=== PATIENT | female | born 1990 | race Caucasian/White ===

== ENCOUNTER → 2016-11-09 | Outpatient (CLI) | payer OTHER ==
[~2016-11-09] VITALS: Ht 170.2 cm; Wt 49.0 kg
[~2016-11-09] MED LIST: NORMAL SALINE IV ONE; SINCALIDE IV ONE
--- NOTE | 2016-11-09 14:11 | RAD ---
Radionuclide hepatobiliary scan, 11/09/2016: History: Chronic abdominal pain Following IV injection of 5.5 mCi of technetium 99m Choletec there was prompt uptake of the radionuclide from the blood stream by the liver. Activity is present in the bile ducts, gallbladder and small bowel at 15 minutes. Additional imaging of the gallbladder was then performed following IV injection of 0.98 mcg of cholecystokinin. The gallbladder ejection fraction was calculated at 24%. 30-50% is considered to be the borderline low range. IMPRESSION: 1. No evidence of cystic duct or common bile duct obstruction. 2. Decreased gallbladder ejection fraction of 24%.
== END | disposition home or self-care (01) ==
LOC: NM 09:33
PROVIDERS: ATTEND Nurse Practitioner
DX: R10.9 Unspecified abdominal pain (principal); G89.29 Other chronic pain
CPT/HCPCS: 78226; 96374; 96375; A9537; J2805

== ENCOUNTER 2017-01-09 08:56 | Day surgery (SDC) | payer OTHER ==
[~2017-01-09] VITALS: Ht 172.7 cm; Wt 47.2 kg
[~2017-01-09 08:56] MED LIST changes: +BUPIVAC MPF-EPI 0.5%-1:200000 10 ML VIAL. ONE; +FOLI1TAB16 PO; +GLUCAGON,HUMAN RECOMBINANT 1 MG/ML VIAL. ONE; +HYDROmorphone 2 MG/ML VIAL IV PRN; +IOHEXOL 300 MG/ML 50 ML VIAL. ONE; +IV RINGERS,LACTATED 1000ML 1,000 ML IV SCH; +LIDOCAINE 1% PF 2 ML VIAL. ID PRN; +MEDR150D3 IM; +METH2.5T PO; +MORPHINE SULFATE 2 MG/ML DISP.SYRIN. IV PRN; +NAPR1TAB21 PO; -NORMAL SALINE IV ONE; +ONDANSETRON PF 4 MG/2 ML VIAL. IV PRN; +PROCHLORPERAZINE 10 MG/2 ML VIAL. IV PRN; -SINCALIDE IV ONE; +SURGICEL HEMOSTAT 4X8 EACH. ONE; +fentaNYL PF VIAL 100 MCG/2 ML VIAL IV PRN
[2017-01-09] MEDS ORDERED: MIDAZOLAM HCL/PF 2 MG/2 ML VIAL. ONE (09:56)
[2017-01-09] MEDS ORDERED: fentaNYL PF VIAL 100 MCG/2 ML VIAL ONE ×4 (09:56→12:31)
[2017-01-09 10:20] LABS: NEG OBC UR NEG; POS OBC UR POS
[2017-01-09 10:22] LABS: BASO % 1 % (0-3); EOS % 1 % (0-3); HEMATOCRIT 39.9 % (36.0-47.0); HEMOGLOBIN 13.6 g/dL (12.0-15.5); LYMPH # 1.7 x10^3/uL (1.0-4.8); LYMPH % 27 % (24-48); MEAN CORPUSCULAR HEMOGLOBIN 32 pg (25-35); MEAN CORPUSCULAR HGB CONC 34 g/dL (31-37); MEAN CORPUSCULAR VOLUME 94 fL (79-100); MONO % 10 % (0-9); NEUT % 62 % (31-73); PLATELET COUNT 224 x10^3/uL (140-400); RED BLOOD COUNT 4.26 x10^6/uL (3.50-5.40); RED CELL DISTRIBUTION WIDTH 13.2 % (11.5-14.5); WHITE BLOOD COUNT 6.2 x10^3/uL (4.0-11.0)
[2017-01-09 10:36] LABS: CALCIUM 8.4 mg/dL (8.5-10.1); CREATININE 0.7 mg/dL (0.6-1.0); GFR 100.4; POTASSIUM 3.7 mmol/L (3.5-5.1)
[2017-01-09 10:42] LABS: ALBUMIN 3.7 g/dL (3.4-5.0); TOTAL BILIRUBIN 0.5 mg/dL (0.2-1.0)
[2017-01-09] MEDS ORDERED: GLYCOPYRROLATE 1 MG/5 ML VIAL. ONE (11:04)
[2017-01-09] MEDS ORDERED: NEOSTIGMINE METHYLSULFATE 5 MG/5 ML SYRINGE. ONE (11:04)
[2017-01-09] MEDS ORDERED: ONDANSETRON PF 4 MG/2 ML VIAL. ONE (11:21)
[2017-01-09] MEDS ORDERED: LIDOCAINE 2% PF Vial for OR 5 ML VIAL. ONE (11:21)
[2017-01-09] MEDS ORDERED: DEXAMETHASONE SOD PHOS 20 MG/5 ML VIAL. ONE (11:21)
[2017-01-09] MEDS ORDERED: PROPOFOL 20 ML IV ONE (11:21)
[2017-01-09] MEDS ORDERED: KETOROLAC 30 MG/ML INJ FOR OR. INJ ONE (11:21)
--- NOTE | 2017-01-09 11:38 | RAD ---
Indication protocol study. Postcholecystectomy. Assess for variant anatomy or complication. Assess for potential choledocholithiasis. For members of the Department of surgery fluoroscopy was provided. 3 spot fluoroscopic images were obtained. Fluoroscopy time associated with the imaging was 0.9 minutes. Those intrahepatic radicles which are seen appear normal. The common hepatic duct appears unremarkable. There is slight irregularity in the distal common bile duct. This may reflect a component of spasm. Some debris in the distal common bile duct is not entirely excluded. Contrast flows into the duodenum. IMPRESSION: Slight irregularity involving the distal common bile duct may reflect some spasm or debris in the duct.
--- NOTE | 2017-01-09 11:56 | OP ---
DATE OF SURGERY: 01/09/2017 PREOPERATIVE DIAGNOSIS: Biliary dyskinesia. POSTOPERATIVE DIAGNOSIS: Biliary dyskinesia. PROCEDURE: Laparoscopic cholecystectomy with cholangiograms. SURGEON: Ehsan Hood MD ANESTHESIA: General endotracheal. ESTIMATED BLOOD LOSS: 10 mL. INTRAVENOUS FLUID: 800. INDICATIONS: The patient is a 26-year-old with postprandial epigastric pain and nausea. She is brought for cholecystectomy. OPERATIVE FINDINGS: The liver was smooth and sharp. The gallbladder was supple. Cholangiograms were normal. DESCRIPTION OF PROCEDURE: The patient brought to the operating suite, given a general endotracheal anesthetic and the abdomen prepped and draped in usual sterile fashion. An infraumbilical incision was infiltrated with local anesthetic, sharply incised and a 5 mm Visiport placed, taking care to avoid injury to abdominal contents. Pneumoperitoneum established with the maximum pressure of 12 cm. Camera inserted and inspection carried out with results as noted above. With the table in reverse Trendelenburg rolled to left, the epigastric and midclavicular ports were placed. The lateral port location was used for an "alligator" grasper. Gallbladder was retracted superolaterally and the cystic duct and cystic artery were isolated. The duct was clipped on the gallbladder side. Cholangiograms were made. These were normal. In light of this, the catheter was removed. The cystic duct was clipped x 3 and divided, taking care to avoid injury or compromise of the common duct. The cystic artery was clipped and divided and gallbladder freed from the bed with cautery dissection. A small posterior vessel part way up the fossa was controlled with a single clip. Good hemostasis was present. Gallbladder placed in an EndoCatch bag and table returned to level. No evidence of bleeding or bile leak from the fossa was seen. Gallbladder delivered through the epigastric incision. Epigastric incision closed with interrupted 0 Vicryl suture. Intra-abdominal pressure decreased to 6 cm of water. No bleeding from the epigastric closure or from the midclavicular port site after its removal or from the alligator clamp site. Abdomen decompressed, camera slowly removed, no bleeding seen. Skin incisions closed with subcuticular 4-0 Monocryl. Steri-Strips and sterile dressings applied. The patient awakened from her anesthetic and taken to the recovery room in satisfactory condition. EHSAN HOOD MD DR: Ira JOB#: [id number] / [id number]
[2017-01-09] MEDS: fentaNYL PF VIAL 100 MCG/2 ML VIAL IV PRN ×4 (12:00→13:36)
--- NOTE | 2017-01-09 12:02 | PDOC ---
BRIEF OPERATIVE NOTE Date: Jan 09, 2017 Pre-Op Diagnosis biliary dyskinesia Post-Op Diagnosis same Procedure Performed l/s marky with dania Surgeon Charlie Publicity Manager Jazlyn CABEZAS Anesthesia Type: General Blood Loss 10cc IV Fluid 800cc Specimens Obtained GB Findings supple GB,grams suggested possible spasm or debris Complications none OPerative Note Wk # [id number] EHSAN HOOD MD Jan 09, 2017 12:02
--- NOTE | 2017-01-09 12:03 | DISCH ---
DISCHARGE INSTRUCTIONS Condition on Discharge Condition on Discharge: Stable Activity After Discharge Activity Instructions for Disc: Activity as tolerated, Avoid exertion Driving Instructions after Dis: Do not drive (3-4 days) Diet after Discharge Diet after Discharge: Regular Wound Incision Care Wound/Incision Care: Ice to area for comfort Other wound/incision instructi: shantanu shower Monday EHSAN HOOD MD Jan 09, 2017 12:03
[2017-01-09] MEDS ORDERED: OXYC-323 PO ×2 (12:11→12:21)
[2017-01-09] MEDS ORDERED: oxyCODONE/APAP 5/325 1 TAB TABLET PO ONE ×2 (12:45→13:15)
[2017-01-09 13:28] VITALS: BP 106/68
--- NOTE | 2017-01-10 14:12 | PATHOLOGY ---
PATHOLOGY REPORT * * * * * * * * FINAL DIAGNOSIS: Gallbladder, laparoscopic cholecystectomy: - Chronic cholecystitis, mild. COMMENT: There are no calculi identified within the gallbladder lumen or specimen container. There is no evidence of malignancy. (JPM:mml; 01/10/2017) REPORT ELECTRONICALLY SIGNED BY: Rodo Jerome M.D. DATE/TIME: 01/10/2017 14:11 * * * * * * * * GROSS PATHOLOGY: Received in formalin labeled "Saurav Huffman, gallbladder and contents," is a 5.4 x 2.5 x 2.2 cm, intact gallbladder with dark blue to green, slightly vascular, and wrinkled serosal surfaces. Opening the gallbladder reveals dark farias, velvety mucosa and an average wall thickness of 0.1 cm. Calculi are not present and no masses are noted grossly. Family Law Attorney sections from the body and fundus are submitted along with the proximal margin in cassette A1. (TSD; 01/09/2017) INITIAL CPT CODE(S): A; 59029 Professional services performed [place] [address] Technical services performed by [facility] at [address] [place] [address]. SPECIMEN(S) RECEIVED: A.Gallbladder and contents CLINICAL HISTORY: Biliary dyskinesia PATIENT: SAURAV HUFFMAN /AGE: 1203/24/1990 (Age: 26) PATIENT #: [id number] ALT CASE #: SPECIMEN COLLECTION DATE: 01/09/2017 SPECIMEN RECEIVED DATE: 01/09/2017 [id number] [place] [address] - PHONE: [phone] * * * END OF REPORT * * *
--- NOTE | 2017-02-07 10:58 | PDOC1 ---
History and Physical Date of Admission Date of Admission DATE: 01/09/17 TIME: 08:00 Identification/Chief Complaint Chief Complaint post prandial abdominal pain Problems: Source Source: Chart review, Patient History of Present Illness History of Present Illness 26 yo female with post prandial abdominal pain,nausea, vomiting.PIPIDA shows EF of 24 % Past Medical History Cardiovascular: No pertinent hx Pulmonary: No pertinent hx Rheumatologic: Rheumatoid arthritis Renal/: No pertinent hx Past Surgical History Past Surgical History: Tonsillectomy Family History Family History: No Significant Social History Smoke: No ALCOHOL: occassional Current Medications Current Medications Current Medications Ondansetron HCl (Zofran) 4 mg PRN Q6HRS PRN IV NAUSEA/VOMITING; Start at 07:00; Stop 01/09/17 at 14:32; Status DC Fentanyl Citrate (Fentanyl 2ml Vial) 25 mcg PRN Q5MIN PRN IV MILD PAIN; Start 01/09/17 at 07:00; Stop 01/09/17 at 14:32; Status DC Fentanyl Citrate (Fentanyl 2ml Vial) 50 mcg PRN Q5MIN PRN IV MODERATE PAIN Last administered on 01/09/17t 13:36; Start 01/09/17 at 07:00; Stop 01/09/17 at 14:32; Status DC Morphine Sulfate 1 mg PRN Q10MIN PRN IV SEVERE PAIN; Start 01/09/17 at 07:00; Stop 01/09/17 at 14:32; Status DC Ringer's Solution 1,000 ml @ 0 mls/hr Q0M IV Last administered on 01/09/17t 10:25; Start 01/09/17 at 07:00; Stop 01/09/17 at 14:32; Status DC Lidocaine HCl (Xylocaine-Mpf 1% Vial) 2 ml PRN 1X PRN ID PRIOR TO IV START; Start 01/09/17 at 07:00; Stop 01/09/17 at 10:23; Status DC Hydromorphone HCl (Dilaudid) 0.5 mg PRN Q10MIN PRN IV SEV PAIN, Second choice; Start 01/09/17 at 07:00; Stop 01/09/17 at 14:32; Status DC Prochlorperazine Edisylate (Compazine) 5 mg PACU PRN PRN IV NAUSEA, MRX1 Last administered on 01/09/17 13:44; Start 01/09/17 at 07:00; Stop 01/09/17 at 14 :32; Status DC Levofloxacin/ Dextrose 100 ml @ 100 mls/hr 1X PREOP PRN IV PRIOR TO PROCEDURE Last administered on 01/09/17 10:55; Start 01/09/17 at 06:00; Stop 01/09/17 at 14:32; Status DC Iohexol (Omnipaque 300 Mg/ml) 50 ml STK-MED ONCE .ROUTE Last administered on 10:11; Start 01/09/17 at 07:24; Stop 01/09/17 at 08:24; Status DC Glucagon (Glucagen) 1 mg STK-MED ONCE .ROUTE ; Start 01/09/17 at 07:24; Stop 01/09/17 at 08:24; Status DC Bupivacaine HCl/ Epinephrine Bitart (Sensorcain-Mpf Epi 0.5%-1:[id number]) 10 ml STK -MED ONCE .ROUTE Last administered on 01/09/17 10:10; Start 01/09/17 at 07: 24; Stop 01/09/17 at 08:24; Status DC Cellulose 1 each STK-MED ONCE .ROUTE ; Start 01/09/17 at 07:24; Stop 01/09/17 at 08:24; Status DC Midazolam HCl (Versed) 2 mg STK-MED ONCE .ROUTE ; Start 01/09/17 at 09:56; Stop 01/09/17 at 09:57; Status DC Fentanyl Citrate (Fentanyl 2ml Vial) 100 mcg STK-MED ONCE .ROUTE ; Start at 09:56; Stop 01/09/17 at 09:57; Status DC Fentanyl Citrate (Fentanyl 2ml Vial) 100 mcg STK-MED ONCE .ROUTE ; Start at 11:03; Stop 01/09/17 at 11:04; Status DC Neostigmine Methylsulfate 5 mg STK-MED ONCE .ROUTE ; Start 01/09/17 at 11:04; Stop 01/09/17 at 11:05; Status DC Glycopyrrolate (Robinul) 1 mg STK-MED ONCE .ROUTE ; Start 01/09/17 at 11:04; Stop 01/09/17 at 11:05; Status DC Propofol 20 ml @ As Directed STK-MED ONCE IV ; Start 01/09/17 at 11:21; Stop 01/09/17 at 11:22; Status DC Lidocaine HCl (Lidocaine Pf 2% Vial) 5 ml STK-MED ONCE .ROUTE ; Start 01/09/17 at 11:21; Stop 01/09/17 at 11:22; Status DC Dexamethasone Sodium Phosphate (Decadron) 20 mg STK-MED ONCE .ROUTE ; Start at 11:21; Stop 01/09/17 at 11:22; Status DC Ondansetron HCl (Zofran) 4 mg STK-MED ONCE .ROUTE ; Start 01/09/17 at 11:21; Stop 01/09/17 at 11:22; Status DC Ketorolac Tromethamine (Toradol For Or Only) 30 mg STK-MED ONCE INJ ; Start at 11:21; Stop 01/09/17 at 11:22; Status DC Fentanyl Citrate (Fentanyl 2ml Vial) 100 mcg STK-MED ONCE .ROUTE ; Start at 11:50; Stop 01/09/17 at 11:51; Status DC Fentanyl Citrate (Fentanyl 2ml Vial) 100 mcg STK-MED ONCE .ROUTE ; Start at 12:31; Stop 01/09/17 at 12:32; Status DC Oxycodone/ Acetaminophen (Percocet 5/325) 0.5 tab 1X ONCE PO Last administered on 01/09/17t 13:26; Start 01/09/17 at 12:45; Stop 01/09/17 at 12 :46; Status DC Oxycodone/ Acetaminophen (Percocet 5/325) 1 tab 1X ONCE PO ; Start 01/09/17 at 13:15; Stop 01/09/17 at 13:16; Status DC Active Scripts Active Reported Percocet 5-325 Mg Tablet (Oxycodone/Acetaminophen) 1 Each Tablet 0.5 Tab PO Q4HRS Methotrexate (Methotrexate Sodium) 2.5 Mg Tablet 6 Tab PO WEEKLY Folic Acid 1 Mg Tablet 1 Tab PO DAILY Vimovo 500-20 Mg Tablet (Naproxen/Esomeprazole Mag) 1 Each Tab.ir.dr 1 Each PO PRN PRN Depo-Provera (Medroxyprogesterone Acetate) 150 Mg/1 Ml Disp.syrin 1 Ml IM [id number] Allergies Allergies: Coded Allergies: Penicillins (Verified Allergy, Severe, 01/09/17) Sulfa (Sulfonamide Antibiotics) (Verified Allergy, Intermediate, 01/09/17) cinnamon (Verified Allergy, Intermediate, CHOKES AND GETS A STOMACH ACHE, 01/09/17) latex (Verified Allergy, Intermediate, Rash, 01/09/17) orange (Verified Allergy, Intermediate, Rash, 01/09/17) ROS Review of System negative with exception of HPI Physical Exam General: Alert, Oriented X3, Cooperative, No acute distress HEENT: Atraumatic Lungs: Clear to auscultation Heart: RRR Abdomen: Soft, No tenderness Neuro: Normal speech VTE Prophylaxis Ordered VTE Prophylaxis Devices: Yes VTE Pharmacological Prophylaxi: No Assessment/Plan Assessment/Plan biliary dyskinesia l/s marky explained risks including but not limited to bleeding, infection, injury to bowel, liver or bile ducts with need for further surgery, possible need for an "open" procedure or diarrhea post op. Also chance for persistent sx despite l/c she will proceed EHSAN HOOD MD Feb 07, 2017 10:58
== END 2017-01-09 14:15 | disposition home or self-care (01) ==
LOC: SURG 08:56
PROVIDERS: ATTEND Surgery
DX: K82.8 Other specified diseases of gallbladder (principal); K81.1 Chronic cholecystitis; Z86.69 Personal history of other diseases of the nervous system and sense organs; K21.9 Gastro-esophageal reflux disease without esophagitis; Z86.39 Personal history of other endocrine, nutritional and metabolic disease; Z87.39 Personal history of other diseases of the musculoskeletal system and connective tissue; Z72.89 Other problems related to lifestyle; Z91.040 Latex allergy status; Z88.0 Allergy status to penicillin; Z88.2 Allergy status to sulfonamides; Z91.018 Allergy to other foods; Z91.048 Other nonmedicinal substance allergy status
CPT/HCPCS: 36415; 47563; 74300; 80048; 81025; 82040; 82247; 85025; 88304; J0780; J1100; J1885; J1956; J2250; J2405; J2704; J2710; J3010; J3490; J7030; Q9967; J1610; J2001